=== PATIENT | female | born 1975 | race Caucasian/White ===

== ENCOUNTER 2023-12-02 14:21 | Emergency (ER) | payer OTHER ==
[2023-12-02 14:25] VITALS: BP 132/78; PULSE 101; RESP 18; TEMP 98.8; BMI 34.7
[2023-12-02] MEDS ORDERED: ACETAMINOPHEN INJECTION 100 ML IVPB ONE (15:40)
[2023-12-02] MEDS ORDERED: KETOROLAC TROMETHAMINE 15 MG/ML VIAL ONE (15:40)
[2023-12-02] MEDS: LACTATED RINGERS SOLUTION 1000 ML INFUS.BAG IV ONE (15:58)
[2023-12-02] MEDS: ACETAMINOPHEN 1000 MG/100 ML BAG IVPB ONE (15:58)
[2023-12-02] MEDS: KETOROLAC TROMETHAMINE 15 MG/ML VIAL IVPUSH ONE (15:58)
[2023-12-02 16:05] LABS: BASO % 0.8 % (0-2.0); EOS % 1.4 % (0-4.5); HEMATOCRIT 41.8 % (32.4-45.2); HEMOGLOBIN 13.5 GM/dL (10.7-15.3); LYMPH % 23.4 % (8-40); MCH 27.2 pg (25.7-33.7); MCHC 32.3 g/dl (32.0-36.0); MEAN CELL VOLUME 84.2 fl (80-96); MEAN PLT VOLUME 7.8 fl (7.5-11.1); MONO % 5.8 % (3.8-10.2); NEUT % 68.6 % (42.8-82.8); PLATELET COUNT 461 10^3/uL (134-434); RBC 4.96 M/mm3 (3.60-5.2); RDW 14.9 % (11.6-15.6); WHITE BLOOD COUNT 9.5 K/mm3 (4.0-10.0)
[2023-12-02 16:23] LABS: POTASSIUM 4.2 mmol/L (3.5-5.1)
[2023-12-02 16:25] LABS: CALCIUM 9.5 mg/dL (8.5-10.1)
[2023-12-02 16:26] LABS: ALBUMIN 3.8 g/dl (3.4-5.0)
[2023-12-02 16:29] LABS: CREATININE 0.6 mg/dL (0.55-1.3)
[2023-12-02 16:30] LABS: BILIRUBIN,TOTAL 0.5 mg/dL (0.2-1); TOT PROT 7.9 g/dl (6.4-8.2)
== END 2023-12-02 20:26 | disposition home or self-care (01) ==
LOC: JERFT 14:21
PROC: 3E033NZ Introduction of Analgesics, Hypnotics, Sedatives into Peripheral Vein, Percutaneous Approach (ICD-10-PCS; principal; 2023-12-02)
PROC: 3E0333Z Introduction of Anti-inflammatory into Peripheral Vein, Percutaneous Approach (ICD-10-PCS; 2023-12-02)
DX: R68.84 Jaw pain (principal)
CPT/HCPCS: 36415; 70491-TC; 80053; 85025; 99285-25; J0131; Q9967